=== PATIENT | female | born 1980 | race Caucasian/White ===

== ENCOUNTER 2020-10-18 07:53 | Outpatient (CLI) | payer OTHER | END 2020-10-18 23:59 | disposition home or self-care (01) | LOC: CVU 07:53 | PROVIDERS: ATTEND Internal Medicine Cardiovascular Disease | DX: O00.01 Abdominal pregnancy with intrauterine pregnancy (principal); R06.02 Shortness of breath; Z3A.27 27 weeks gestation of pregnancy | CPT/HCPCS: 93306 ==

== ENCOUNTER 2020-12-21 10:02 | Outpatient (CLI) | payer OTHER | END 2020-12-21 13:30 | disposition home or self-care (01) | LOC: LDOP 10:02 | PROVIDERS: ATTEND Obstetrics & Gynecology | DX: O09.90 Supervision of high risk pregnancy, unspecified, unspecified trimester (principal) | CPT/HCPCS: 59025; 76815; 76819 ==

== ENCOUNTER 2021-01-04 02:00 | Inpatient (IN) | payer OTHER ==
[~2021-01-04] VITALS: Ht 165.1 cm; Wt 98.6 kg
[2021-01-05] MEDS ORDERED: FENTANYL PF 100 MCG/2ML IVPush PRN (06:30)
[2021-01-05] MEDS ORDERED: SODIUM CHLORIDE FLUSH 10ML SYR IVF PRN (06:30)
[2021-01-05] MEDS ORDERED: ALUMINUM/MAG/SIMETHICONE 30 ML UDC PO PRN (06:30)
[2021-01-05] MEDS ORDERED: FENTANYL PF 100 MCG/2ML IV PRN (06:30)
[2021-01-05] MEDS ORDERED: D5%-LACTATED RINGERS 1,000 ML IV SCH (06:30)
[2021-01-05] MEDS ORDERED: OXYTOCIN 30U/ 0.9% NaCL 500ML 500 ML IV PRN (06:30)
[2021-01-05] MEDS ORDERED: OXYTOCIN 30U/ 0.9% NaCL 500ML 500 ML IV ONE (06:30)
[2021-01-05] MEDS ORDERED: METOCLOPRAMIDE 5 MG/ML, 2ML IVPush PRN (06:30)
[2021-01-05] MEDS ORDERED: ONDANSETRON 2MG/ML, 2ML IVPush PRN (06:30)
[2021-01-05] MEDS ORDERED: CALCIUM CARBONATE 500 MG TAB.CHEW PO PRN (06:30)
[2021-01-05] MEDS ORDERED: TERBUTALINE 1 MG/ML, 1ML SQ PRN (06:30)
[2021-01-05] MEDS ORDERED: TERBUTALINE 1 MG/ML, 1ML IVPush PRN (06:30)
[2021-01-05 07:26] LABS: BASOPHILS % (AUTO) 1 % (0-1); EOSINOPHILS % (AUTO) 1 % (1-7); LYMPHOCYTES % (AUTO) 23 % (22-44); MEAN CORPUSCULAR HGB CONC 35.2 g/dL (32.4-35.8); MEAN PLATELET VOLUME 11.1 fL (7.4-10.4); MONOCYTES % (AUTO) 8 % (2-9); NEUTROPHILS % (AUTO) 68 % (42-75); PLATELET COUNT 148 x10^3/uL (130-400); RED BLOOD COUNT 3.85 x10^6/uL (3.82-5.3); RED CELL DISTRIBUTION WIDTH 12.8 % (9.6-15.2)
[2021-01-05] MEDS ORDERED: NEWBORN KIT ONE (09:15)
[2021-01-05] MEDS ORDERED: DIPH,PERTUSS(ACELL),TET VAC/PF NC IM-VACC ONE (11:33)
[2021-01-05] MEDS: LACTATED RINGERS 1,000 ML IV SCH ×2 (12:09→16:25)
[2021-01-06] MEDS ORDERED: LIDOCAINE 1%, 20ML ONE (02:33)
[2021-01-06] MEDS ORDERED: CARBOPROST TROMETHAMINE 250 MCG/ML, 1ML IM PRN (03:00)
[2021-01-06] MEDS ORDERED: OXYTOCIN 10 UNITS/ML, 1ML IM PRN (03:00)
[2021-01-06] MEDS ORDERED: METHYLERGONOVINE 0.2 MG/ML IM PRN (03:00)
[2021-01-06] MEDS ORDERED: MISOPROSTOL 200 MCG TABLET PR PRN (03:00)
[2021-01-06] MEDS ORDERED: OXYTOCIN 30U/ 0.9% NaCL 500ML 500 ML IV SCH (03:00)
[2021-01-06] MEDS ORDERED: HYDROcodone/APAP 5/325 TABLET PO PRN ×2 (03:00)
[2021-01-06] MEDS ORDERED: ONDANSETRON 2MG/ML, 2ML IV PRN (03:00)
[2021-01-06] MEDS ORDERED: SIMETHICONE 80 MG CHEW TAB PO PRN (03:00)
[2021-01-06] MEDS: IBUPROFEN 600 MG TABLET PO PRN ×4 (03:18→23:21)
[2021-01-06 05:15] VITALS: BP 118/78
[2021-01-06 07:30] VITALS: BP 101/66
[2021-01-06] MEDS: PRENATAL VIT/IRON/FA 1 EACH TABLET PO SCH (10:47)
[2021-01-06] MEDS: DOCUSATE 100 MG CAPSULE PO PRN ×2 (10:47→20:57)
[2021-01-06 11:02] LABS: BASOPHILS % (AUTO) 1 % (0-1); EOSINOPHILS % (AUTO) 0 % (1-7); LYMPHOCYTES % (AUTO) 12 % (22-44); MEAN CORPUSCULAR HEMOGLOBIN 33.9 pg (27.0-34.8); MEAN PLATELET VOLUME 10.7 fL (7.4-10.4); MONOCYTES % (AUTO) 8 % (2-9); NEUTROPHILS % (AUTO) 79 % (42-75); PLATELET COUNT 128 x10^3/uL (130-400); RED BLOOD COUNT 3.42 x10^6/uL (3.82-5.3); RED CELL DISTRIBUTION WIDTH 12.9 % (9.6-15.2)
[2021-01-06 12:52] VITALS: BP 107/70
[2021-01-06] MEDS: ACETAMINOPHEN 325 MG TABLET PO PRN ×2 (16:17→20:56)
[2021-01-06 20:00] VITALS: BP 120/78
[2021-01-06 23:15] VITALS: BP 121/81
[2021-01-07] MEDS: ACETAMINOPHEN 325 MG TABLET PO PRN ×2 (03:10→08:09)
[2021-01-07] MEDS: IBUPROFEN 600 MG TABLET PO PRN (05:20)
[2021-01-07 07:15] VITALS: BP 111/73
[2021-01-07] MEDS: PRENATAL VIT/IRON/FA 1 EACH TABLET PO SCH (08:09)
[2021-01-07] MEDS: DOCUSATE 100 MG CAPSULE PO PRN (08:09)
[2021-01-07] MEDS ORDERED: HYDR-2214 PO (11:40)
[2021-01-07] MEDS ORDERED: SENN-92 PO (11:40)
[2021-01-07] MEDS ORDERED: IBUP-1222 PO (11:40)
[2021-01-07] MEDS ORDERED: DIPH,PERTUSS(ACELL),TET VAC/PF NC IM-VACC ONE ×2 (11:51→12:00)
== END 2021-01-07 13:15 | disposition home or self-care (01) | DRG 807 ==
LOC: LDIP 01-05 06:17 → 2NW 01-06 04:54
PROVIDERS: ADMIT Obstetrics & Gynecology; ATTEND Obstetrics & Gynecology
PROC: 0KQM0ZZ Repair Perineum Muscle, Open Approach (ICD-10-PCS; principal; 2021-01-06)
PROC: 10E0XZZ Delivery of Products of Conception, External Approach (ICD-10-PCS; 2021-01-06)
PROC: 10907ZC Drainage of Amniotic Fluid, Therapeutic from Products of Conception, Via Natural or Artificial Opening (ICD-10-PCS; 2021-01-06)
PROC: 3E033VJ Introduction of Other Hormone into Peripheral Vein, Percutaneous Approach (ICD-10-PCS; 2021-01-06)
DX: O36.5910 Maternal care for other known or suspected poor fetal growth, first trimester, not applicable or unspecified (principal); Z37.0 Single live birth; O34.219 Maternal care for unspecified type scar from previous cesarean delivery; O69.81X0 Labor and delivery complicated by cord around neck, without compression, not applicable or unspecified; O70.1 Second degree perineal laceration during delivery; M79.7 Fibromyalgia; Z3A.39 39 weeks gestation of pregnancy; Z20.822 Contact with and (suspected) exposure to COVID-19
CPT/HCPCS: 36415; 85025; 86592; 86850; 86900; 87635; 88305; 90715; G0378; J2590; J7120